=== PATIENT | female | born 1980 ===

== ENCOUNTER 2020-09-16 19:01 | Emergency (ER) | payer SELFPAY ==
[2020-09-16 20:02] LABS: Basophils # (Auto) 0.1 K/mm3 (0.0-0.1); Basophils % (Auto) 1.1 % (0.0-1.8); Eosinophils # (Auto) 0.1 K/mm3 (0.0-0.4); Eosinophils % (Auto) 0.7 % (0.0-4.3); Hematocrit 38.3 % (30.3-42.9); Hemoglobin 13.4 gm/dl (10.1-14.3); Lymphocytes # (Auto) 3.9 K/mm3 (1.2-5.4); Lymphocytes % (Auto) 41.6 % (13.4-35.0); Mean Corpuscular HGB Conc 35 % (30-34); Mean Corpuscular Volume 87 fl (79-97); Monocytes # (Auto) 0.6 K/mm3 (0.0-0.8); Monocytes % (Auto) 6.4 % (0.0-7.3); Platelet Count 276 K/mm3 (140-440); Red Blood Count 4.43 M/mm3 (3.65-5.03); Red Cell Distribution Width 14.4 % (13.2-15.2)
[2020-09-16 20:55] VITALS: BP 130/88
--- NOTE | 2020-09-16 21:05 | Emergency Department Report ---
ED HPI - General Chief complaint: Abdominal Pain Stated complaint: , HEAVY BLEEDING Source: patient Mode of arrival: Ambulatory Limitations: Language Barrier - History of Present Illness Initial comments: 39-year-old female presents to the emergency room stating she is having vaginal bleeding with clots and pelvic cramping that started today. Patient reports she is gone through 2 pads. She states that the pain is located in her lower abdomen. Patient reports the pain is a 5 out of 10. She denies any headache no fever no shortness of breath no chills no chest pain. She has never had a transfusion. She is 2 para 1. History of gestational diabetes and preeclampsia. Patient states that her the clinic she went to was with Dr. Margoth Bowden sent her to be evaluated. Complaint: abdominal pain, vaginal bleeding -: This afternoon Location: pelvis Radiation: suprapubic Severity scale (0 -10): 6 Quality: cramping, stabbing, sharp Consistency: constant Improves with: none Worsens with: none Associated symptoms: vaginal bleeding Vaginal bleeding: heavy, clots :: Yes Number of weeks : 16 OB History - Current : no complications OB History - Previous Pregnancies: preeclampsia, gestational diabetes Last menstrual period: 05/22/20 Pre-parrish care: followed by OB - Related Data : 2 Para: 1 Previous Rx's Medication Instructions Recorded Last Taken Type Nitrofurantoin Sibley/M-Cryst 100 mg PO Q12HR 10 Days #20 capsule 09/17/20 Unknown Rx [Macrobid CAP] Allergies Allergy/AdvReac Type Severity Reaction Status Date / Time No Known Allergies Allergy Unverified 09/17/20 02:03 ED Review of Systems ROS: Stated complaint: , HEAVY BLEEDING Other details as noted in HPI Comment: All other systems reviewed and negative ED Past Medical Hx - Past Medical History Previous Medical History?: Yes Hx Hypertension: Yes - Surgical History Past Surgical History?: Yes Hx Appendectomy: Yes - Social History Smoking Status: Never Smoker Substance Use Type: None - Medications Home Medications: Home Medications Medication Instructions Recorded Confirmed Last Taken Type Nitrofurantoin Sibley/M-Cryst 100 mg PO Q12HR 10 Days #20 capsule 09/17/20 Unknown Rx [Macrobid CAP] ED Physical Exam - General Limitations: Language Barrier General appearance: alert, other (Appears uncomfortable) - Head Head exam: Present: atraumatic, normocephalic - Eye Eye exam: Present: normal appearance - ENT ENT exam: Present: mucous membranes moist - Cardiovascular Cardiovascular Exam: Present: regular rate - GI/Abdominal GI/Abdominal exam: Present: soft, tenderness. Absent: distended, guarding ED Course Vital Signs 09/16/20 20:51 Temperature 98.3 F Pulse Rate 108 H Respiratory 18 Rate Blood Pressure 130/88 O2 Sat by Pulse 99 Oximetry - Reevaluation(s) Reevaluation #1: 09/17/20 01:53 Spoke with ultrasound she states that she will put in a message to radiology to read the study. ED Medical Decision Making - Lab Data Result diagrams: 09/16/20 19:47 09/16/20 19:47 - Medical Decision Making 39-year-old female presents to the emergency room stating she is having vaginal bleeding with clots and pelvic cramping that started today. Patient reports she is gone through 2 pads. She states that the pain is located in her lower abdomen. Patient reports the pain is a 5 out of 10. She denies any head ache no fever no shortness of breath no chills no chest pain. She has never had a transfusion. She is 2 para 1. History of gestational diabetes and preeclampsia. Patient states that her the clinic she went to was with Dr. Margoth Bowden sent her to be evaluated. Urinalysis is positive for urinary tract infection. Patient be placed on Macrobid 100 mg p.o. twice daily for 10 days. Ultrasound pending. Signout given to MONTEZ Paz to follow-up on ultrasound. Critical care attestation.: If time is entered above; I have spent that time in minutes in the direct care of this critically ill patient, excluding procedure time. ED Disposition Clinical Impression: UTI (urinary tract infection) during Qualifiers: Trimester: second trimester Qualified Code(s): O23.42 - Unspecified infection of urinary tract in , second trimester Disposition: TO HOME OR SELFCARE Is pt being admited?: No Does the pt Need Aspirin: No Condition: Stable Instructions: and Urinary Tract Infection, Abdominal Pain (ED) Prescriptions: Nitrofurantoin Sibley/M-Cryst [Macrobid CAP] 100 mg PO Q12HR 10 Days #20 capsule Referrals: DEYANIRA-ARNOL,JOHN E, DO [Primary Care Provider] - 3-5 Days
[2020-09-16 21:16] LABS: Alanine Aminotransferase 14 units/L (7-56); Blood Urea Nitrogen 6 mg/dL (7-17); Calcium 9.5 mg/dL (8.4-10.2); Hemolysis Index 12
[2020-09-16 21:25] LABS: Bacteria,Urine 4+ /HPF (Negative); Bilirubin,Urine NEG (Negative); Blood,Urine LG (Negative); Color,Urine Red (Yellow); Mucus,Urine FEW /HPF; Urobilinogen,Urine < 2.0 mg/dL (<2.0)
[2020-09-16 21:33] LABS: BUN/Creatinine Ratio 20
--- NOTE | 2020-09-17 03:31 | Ultrasound Report ---
TRANSABDOMINAL OB PELVIC ULTRASOUND INDICATION / CLINICAL INFORMATION: Vaginal bleeding. COMPARISON: None available. FINDINGS: There is a single intrauterine with sonographic dates of 14 weeks 3 days and an EDC of 02/20 09/09. Clinical dates are uncertain. The heart rate is 156 bpm. presentation is variable. Amniotic fluid volume is normal. The placenta is located anteriorly, is grade 0 and is free of the os . The right ovary measures 3.8 x 1.8 x 2.4 cm. The left ovary is not seen. There is no evidence of adne xal mass or free fluid. IMPRESSION: Single viable 14 week 3 day intrauterine without complication. Signer Name: Rashaun Melchor MD Signed: 09/17/2020 3:26 AM Workstation Name: [id number]
== END 2020-09-17 06:23 | disposition home or self-care (01) ==
LOC: ED 19:01
DX: O23.41 Unspecified infection of urinary tract in pregnancy, first trimester (principal); I10 Essential (primary) hypertension; Z90.49 Acquired absence of other specified parts of digestive tract; Z79.899 Other long term (current) drug therapy; Z3A.01 Less than 8 weeks gestation of pregnancy
CPT/HCPCS: 36415; 76805; 80053; 81001; 84702; 85025; 86900; 86901; 87086